=== PATIENT | male | born 2000 | race Hispanic/Latino ===

== ENCOUNTER 2020-12-25 00:51 | Emergency (ER) | payer OTHER ==
[~2020-12-25] VITALS: Ht 175.3 cm; Wt 95.3 kg
[2020-12-25] MEDS ORDERED: ONDANSETRON HCL INJ 2MG/ML 2ML 2 MG/ML VIAL IV STA (02:23)
[2020-12-25] MEDS ORDERED: SODIUM CHLORIDE 0.9% 1000ML 1,000 ML IV ONE (02:30)
[2020-12-25 02:53] LABS: BASOPHILS # (AUTO) 0.1 (0.0-0.1); BASOPHILS % 0.5 % (0.0-1.0); EOSINOPHILS # (AUTO) 0.1 (0.0-0.4); EOSINOPHILS % 0.8 % (0.0-6.0); HEMATOCRIT 46.5 % (38.2-49.6); HEMOGLOBIN 17.1 g/dL (14.0-18.0); LYMPHOCYTES # (AUTO) 4.2 (1.0-3.2); LYMPHOCYTES % 38.9 % (18.0-39.1); MEAN CORPUSCULAR HEMOGLOBIN 32.1 pg (28-32); MEAN CORPUSCULAR HGB CONC 36.8 g/dL (31-35); MEAN CORPUSCULAR VOLUME 87.2 fL (81-99); MONOCYTES # (AUTO) 0.8 (0.2-0.8); NEUTROPHILS # (AUTO) 5.6 (2.1-6.9); NEUTROPHILS % 52.3 % (38.7-80.0); PLATELET COUNT 245 x10e3/uL (140-360); RED BLOOD COUNT 5.33 x10e6/uL (4.3-5.7); RED CELL DISTRIBUTION WIDTH 12.9 % (11.7-14.4)
[2020-12-25 05:00] LABS: ALBUMIN 4.7 g/dL (3.5-5.0); ALBUMIN/GLOBULIN RATIO 1.4 (0.8-2.0); ANION GAP 19.7 mmol/L (8-16); CREATININE, SERUM 1.04 mg/dL (0.72-1.25); POTASSIUM 3.7 mmol/L (3.5-5.1)
== END 2020-12-25 03:43 | disposition home or self-care (01) ==
LOC: ER 00:55
DX: S43.401A Unspecified sprain of right shoulder joint, initial encounter (principal); M25.561 Pain in right knee; R51.9 Headache, unspecified; V29.9XXA Motorcycle rider (driver) (passenger) injured in unspecified traffic accident, initial encounter
CPT/HCPCS: 36415; 70450; 71045; 73030; 73562; 80053; 85025; 99284; J2405; J7030